=== PATIENT | female | born 1985 | race Caucasian/White ===

== ENCOUNTER → 2017-02-10 | Outpatient (CLI) | payer OTHER ==
[~2017-02-10] MED LIST: AMOXICILLIN500 MG PO; AMOXIL500 MG PO; ANAPROX DS550 MG PO; ATARAX25 MG PO; CLINDAMYCIN HC300 MG PO; DELSYM30 MG/5 ML PO; FLONASE ALLERG9.9 ML NAS; KEFLEX500 MG PO; MOTRIN800 MG PO; NKHM PO; NORCO 325 MG-51 TAB PO; Orphenadrine C100 MG PO; PREDNISONE10 MG PO; PREDNISONE20 MG PO; ROBITUSSIN AC 110 ML PO; TESSALON PERLE200 MG PO; VICODIN 5/500 505 MG PO; ZITHROMAX Z PA250 MG PO
== END | disposition home or self-care (01) ==
LOC: US 10:01
DX: K76.0 Fatty (change of) liver, not elsewhere classified (principal); R14.0 Abdominal distension (gaseous)

== ENCOUNTER 2017-07-26 17:10 | Emergency (ER) | payer OTHER ==
[~2017-07-26] VITALS: Wt 68.0 kg
[2017-07-26] MEDS ORDERED: AMOXICILLIN500 M2 PO (17:57)
== END 2017-07-26 18:08 | disposition home or self-care (01) ==
LOC: ED 17:10
DX: J03.90 Acute tonsillitis, unspecified (principal); F17.200 Nicotine dependence, unspecified, uncomplicated

== ENCOUNTER 2019-09-10 11:17 | Emergency (ER) | payer OTHER ==
[~2019-09-10] VITALS: Ht 152.4 cm; Wt 74.8 kg
[~2019-09-10 11:17] MED LIST changes: +AMOXICILLIN500 M2 PO
[2019-09-10] MEDS ORDERED: ZOFRAN4 MG PO (14:23)
== END 2019-09-10 14:27 | disposition home or self-care (01) ==
LOC: ED 11:17
DX: G43.909 Migraine, unspecified, not intractable, without status migrainosus (principal); J01.90 Acute sinusitis, unspecified; B97.89 Other viral agents as the cause of diseases classified elsewhere; F17.200 Nicotine dependence, unspecified, uncomplicated; Z79.899 Other long term (current) drug therapy